=== PATIENT | female | born 1960 | race Caucasian/White ===

== ENCOUNTER 2017-05-18 08:03 | Emergency (ER) | payer SELFPAY ==
[~2017-05-18] VITALS: Ht 160 cm; Wt 75.0 kg
[2017-05-18 08:04] VITALS: BP 179/102; PULSE 83; RESP 16; TEMP 98.2; O2SAT 96
--- NOTE | 2017-05-18 09:39 | PD ---
HPI Chief Complaint: Edema Time Seen by Provider: 09:34 Travel History International Travel<30 days: No Contact w/Intl Traveler<30days: No Traveled to known affect area: No History of Present Illness HPI 56-year-old female patient with history of CHF, not on any diuretics, apparently has been moving around [place] quite a lot, does not have a primary care doctor, is here because she states that her legs have been swollen for 3 days and she has been walking around on her feet recently, and states that she is having some shortness of breath and dyspnea on exertion. She denies any chest pains, fevers, or other symptoms. Modifying Factors: None Associated Signs & Symptoms: Dyspnea on exertion, bilateral leg swelling Risk Factors: CHF history PFSH Past Medical History Cardiovascular Problems: Yes (CHF) ?: Not Social History Tobacco Use: Yes Allergies-Medications (Allergen,Severity, Reaction): Coded Allergies: ibuprofen (Verified Allergy, Intermediate, Rash, 05/18/17) Reported Meds & Prescriptions Reported Meds & Active Scripts Active Reported Flexeril (Cyclobenzaprine HCl) 10 Mg Tab 10 Mg PO BID Review of Systems Except as stated in HPI: all other systems reviewed are Neg Physical Exam Narrative GENERAL: Well-developed middle age female patient currently in mild distress. Awake and oriented 3. SKIN: Focused skin assessment warm/dry. HEAD: Atraumatic. Normocephalic. EYES: Pupils equal and round. No scleral icterus. No injection or drainage. ENT: No nasal bleeding or discharge. Mucous membranes pink and moist. NECK: Trachea midline. No JVD. Supple. CARDIOVASCULAR: Regular rate and rhythm. No murmur appreciated. RESPIRATORY: No accessory muscle use. Clear to auscultation. Breath sounds equal bilaterally. GASTROINTESTINAL: Abdomen soft, non-tender, nondistended. Hepatic and splenic margins not palpable. MUSCULOSKELETAL: No obvious deformities. No clubbing. No cyanosis. Bilateral pitting edema of the legs. NEUROLOGICAL: Awake and alert. No obvious cranial nerve deficits. Motor grossly within normal limits. Normal speech. PSYCHIATRIC: Appropriate mood and affect; insight and judgment normal. Data Data Last Documented VS Vital Signs Date Time Temp Pulse Resp B/P (MAP) Pulse Ox O2 Delivery O2 Flow Rate FiO2 05/18/17 08:04 98.2 83 16 179/102 (127) 96 Orders Orders Complete Blood Count With Diff (05/18/17 09:35) Comprehensive Metabolic Panel (05/18/17 09:35) B-Type Natriuretic Peptide (05/18/17 09:35) Troponin I (05/18/17 09:35) Iv Access Insert/Monitor (05/18/17 09:35) Ecg Monitoring (05/18/17 09:35) Oximetry (05/18/17 09:35) Oxygen Administration (05/18/17 09:35) Chest, Single Ap (05/18/17 09:35) Us Leg Venous Doppler Bilat (05/18/17 09:35) Furosemide Inj (Lasix Inj) (05/18/17 11:15) Labs Laboratory Tests Test 05/18/17 09:55 White Blood Count 11.3 TH/MM3 Red Blood Count 3.94 MIL/MM3 Hemoglobin 12.5 GM/DL Hematocrit 38.0 % Mean Corpuscular Volume 96.3 FL Mean Corpuscular Hemoglobin 31.7 PG Mean Corpuscular Hemoglobin Concent 33.0 % Red Cell Distribution Width 14.0 % Platelet Count 349 TH/MM3 Mean Platelet Volume 8.8 FL Neutrophils (%) (Auto) 55.1 % Lymphocytes (%) (Auto) 35.5 % Monocytes (%) (Auto) 6.7 % Eosinophils (%) (Auto) 1.8 % Basophils (%) (Auto) 0.9 % Neutrophils # (Auto) 6.2 TH/MM3 Lymphocytes # (Auto) 4.0 TH/MM3 Monocytes # (Auto) 0.8 TH/MM3 Eosinophils # (Auto) 0.2 TH/MM3 Basophils # (Auto) 0.1 TH/MM3 CBC Comment DIFF FINAL Differential Comment Blood Urea Nitrogen 7 MG/DL Creatinine 0.90 MG/DL Random Glucose 101 MG/DL Total Protein 7.9 GM/DL Albumin 3.7 GM/DL Calcium Level 9.0 MG/DL Alkaline Phosphatase 49 U/L Aspartate Amino Transf (AST/SGOT) 30 U/L Alanine Aminotransferase (ALT/SGPT) 28 U/L Total Bilirubin 0.6 MG/DL Sodium Level 139 MEQ/L Potassium Level 3.9 MEQ/L Chloride Level 106 MEQ/L Carbon Dioxide Level 25.6 MEQ/L Anion Gap 7 MEQ/L Estimat Glomerular Filtration Rate 65 ML/MIN Troponin I LESS THAN 0.02 NG/ML B-Type Natriuretic Peptide 15 PG/ML MDM Medical Decision Making Medical Screen Exam Complete: Yes Emergency Medical Condition: Yes Medical Record Reviewed: Yes Interpretation(s) Laboratory Tests Test 05/18/17 09:55 White Blood Count 11.3 TH/MM3 (4.0-11.0) Red Blood Count 3.94 MIL/MM3 (4.00-5.30) Estimat Glomerular Filtration Rate 65 ML/MIN (>89) Troponin I LESS THAN 0.02 NG/ML Last 24 hours Impressions Lower Extremity Ultrasound 05/18/17 0935 Signed Impressions: Service Date/Time: Thursday, May 18, 2017 09:52 - CONCLUSION: Normal examination. Marcus Chung MD Differential Diagnosis Dyspnea on exertion, bilateral leg swelling: CHF versus DVT versus dependent leg edema Narrative Course Chest x-ray was unremarkable for any signs of acute pulmonary processes. Ultrasound did not show DVT. Her BNP is fairly normal. I suspect that the patient has some underlying chronic leg edema, possible CHF without overt acute exacerbation. My plan would be to give her diuretics. She may need to put her legs up when sitting and laying down which may help with the edema as well. My plan would be to release her at this point and have her follow-up with primary care doctor. Return for any worsening in symptoms as needed. The plan has been discussed with her and she states understanding. Diagnosis Primary Impression: Leg swelling Referrals: [facility] Med/Other Pt SpecificInfo: Prescription(s) given Scripts Furosemide (Lasix) 20 Mg Tab 20 MG PO DAILY, #7 TAB 0 Refills Prov: Marc Canchola MD 05/18/17 Disposition: 01 DISCHARGE HOME Condition: Stable Marc Canchola MD May 18, 2017 09:39
[2017-05-18] MEDS ORDERED: CYCL10TA PO (09:42)
[2017-05-18 10:14] LABS: AUTOMATED NEUTROPHIL # 6.2 TH/MM3 (1.8-7.7); BASOPHIL # 0.1 TH/MM3 (0-0.2); BASOPHIL % 0.9 % (0.0-2.0); EOSINOPHIL # 0.2 TH/MM3 (0-0.4); EOSINOPHIL % 1.8 % (0.0-4.0); HEMOGLOBIN 12.5 GM/DL (11.6-15.3); LYMPH % 35.5 % (9.0-44.0); MEAN CELL VOLUME 96.3 FL (80.0-100.0); MEAN CORPUSCULAR HEMOGLOBIN 31.7 PG (27.0-34.0); MEAN PLATELET VOLUME 8.8 FL (7.0-11.0); MONO % 6.7 % (0.0-8.0); MONOCYTE # 0.8 TH/MM3 (0-0.9); NEUT % 55.1 % (16.0-70.0); PLATELET COUNT 349 TH/MM3 (150-450); RED BLOOD COUNT 3.94 MIL/MM3 (4.00-5.30); WHITE BLOOD COUNT 11.3 TH/MM3 (4.0-11.0)
[2017-05-18 10:43] LABS: ALBUMIN 3.7 GM/DL (3.4-5.0); AST (GOT) 30 U/L (15-37); BICARBONATE 25.6 MEQ/L (21.0-32.0); BLOOD UREA NITROGEN 7 MG/DL (7-18); CHLORIDE 106 MEQ/L (98-107); GLOMERULAR FILTRATION RATE 65 ML/MIN (>89); GLUCOSE,RANDOM 101 MG/DL (74-106); SODIUM (NA) 139 MEQ/L (136-145)
[2017-05-18 10:44] LABS: ALKALINE PHOSPHATASE 49 U/L (45-117); ALT (GPT) 28 U/L (10-53); TOTAL BILIRUBIN ADULT 0.6 MG/DL (0.2-1.0); TOTAL PROTEIN 7.9 GM/DL (6.4-8.2); TROPONIN I LESS THAN 0.02 NG/ML (0.02-0.05)
--- NOTE | 2017-05-18 11:01 | RADRPT ---
EXAM DATE/TIME: 05/18/2017 09:52 [facility] COMPARISON: No previous studies available for comparison. INDICATIONS : Leg swelling for three days with shortness of breath. MEDICAL HISTORY : Congestive heart failure. Dyspnea. Leg swelling. SURGICAL HISTORY : None. ENCOUNTER: Initial ACUITY: 3 days PAIN SCORE: 3/10 LOCATION: Bilateral legs. TECHNIQUE: Venous ultrasound of the left and right leg was performed from the inguinal ligament to the proximal calf. Real-time, color Doppler and spectral tracing, compression and augmentation techniques were us ed. FINDINGS: RIGHT LEG: There is normal compressibility of the deep venous system from the inguinal region to the proximal ca lf. No echogenic clot is seen in the lumen of the common femoral, femoral, popliteal, and posterior tibial veins. There is a normal response of the venous system to proximal and distal augmentation an d respiration. LEFT LEG: There is normal compressibility of the deep venous system from the inguinal region to the proximal ca lf. No echogenic clot is seen in the lumen of the common femoral, femoral, popliteal, and posterior tibial veins. There is a normal response of the venous system to proximal and distal augmentation an d respiration. CONCLUSION: Normal examination. Marcus Chung MD on May 18, 2017 at 10:58 Board Certified Radiologist. This report was verified electronically.
--- NOTE | 2017-05-18 11:12 | RADRPT ---
EXAM DATE/TIME: 05/18/2017 10:36 [facility] COMPARISON: No previous studies available for comparison. INDICATIONS : Short of breath. MEDICAL HISTORY : Congestive heart failure. Emphysema. SURGICAL HISTORY : None. ENCOUNTER: Initial ACUITY: 1 day PAIN SCORE: 4/10 LOCATION: Bilateral chest FINDINGS: A single view of the chest demonstrates the lungs to be symmetrically aerated without evidence of mas s, infiltrate or effusion. The cardiomediastinal contours are unremarkable. Osseous structures are intact. CONCLUSION: Normal examination. Marcus Chung MD on May 18, 2017 at 11:09 Board Certified Radiologist. This report was verified electronically.
[2017-05-18] MEDS ORDERED: FUROSEMIDE 40 MG/4 ML VIAL IV PUSH ONE (11:15)
[2017-05-18] MEDS ORDERED: FURO1TAB62 PO (11:21)
== END 2017-05-18 12:15 | disposition home or self-care (01) ==
LOC: NEPC 08:03
DX: M79.89 Other specified soft tissue disorders (principal); R06.02 Shortness of breath; R06.00 Dyspnea, unspecified; I50.9 Heart failure, unspecified; Z72.0 Tobacco use; Z88.6 Allergy status to analgesic agent; Z79.899 Other long term (current) drug therapy
CPT/HCPCS: 71045; 80053; 83880; 84484; 85025; 93970; 96374; 99285; J1940

== ENCOUNTER 2017-07-04 11:18 | Emergency (ER) | payer SELFPAY ==
[~2017-07-04] VITALS: Ht 160 cm; Wt 100.0 kg
[~2017-07-04 11:18] MED LIST: CYCL10TA PO; FURO1TAB62 PO
[2017-07-04 11:23] VITALS: BP 146/72; PULSE 80; RESP 16; TEMP 97.9; O2SAT 96
[2017-07-04] MEDS ORDERED: AMOX875T PO (12:36)
--- NOTE | 2017-07-04 12:37 | PD ---
HPI Chief Complaint: Oral / Dental Pain or Problem Time Seen by Provider: 12:04 Travel History International Travel<30 days: No Contact w/Intl Traveler<30days: No Traveled to known affect area: No History of Present Illness HPI 56-year-old female that presents to the ED for evaluation of right lower dental pain. Patient has had this pain for about a month on and off. She knows that she has bad dentition. Per patient his been worse for the past 2 weeks and is not getting better. She comes here in hopes that she needed antibiotic to get a better. Denies any other medical issues. Has not seen a dentist. Has no local dentist. Has an allergy to ibuprofen. States that the pain is currently 6 out of 10. Pain mostly to the right lower tooth. PFSH Past Medical History Cardiovascular Problems: Yes (CHF) Musculoskeletal: Yes (NECK PAIN) Tetanus Vaccination: > 5 Years Influenza Vaccination: No ?: Not Menopausal: Yes Past Surgical History Abdominal Surgery: Yes (SPLENECTOMY) Tonsillectomy: Yes Social History Alcohol Use: Yes (OCC) Tobacco Use: No Substance Use: No Allergies-Medications (Allergen,Severity, Reaction): Coded Allergies: ibuprofen (Verified Allergy, Intermediate, Rash, 07/04/17) Reported Meds & Prescriptions Reported Meds & Active Scripts Active Amoxicillin 875 Mg Tab 875 Mg PO BID 14 Days Reported Flexeril (Cyclobenzaprine HCl) 10 Mg Tab 10 Mg PO BID Review of Systems Except as stated in HPI: all other systems reviewed are Neg Physical Exam Narrative GENERAL: SKIN: Warm and dry. HEAD: Atraumatic. Normocephalic. EYES: Pupils equal and round. No scleral icterus. No injection or drainage. ENT: No nasal bleeding or discharge. Mucous membranes pink and moist. Tongue is midline. No uvula deviation. Dental: Patient has bad dentition throughout with a lot of the molars missing ordered almost eroded. Patient does have soft tissue swelling only, on the right lower jaw but no obvious sign of purulence. Patient has appreciable pain with touch in the right most incisor. tooth 27 and 26. NECK: Trachea midline. No JVD. CARDIOVASCULAR: Regular rate and rhythm. RESPIRATORY: No accessory muscle use. Clear to auscultation. Breath sounds equal bilaterally. GASTROINTESTINAL: Abdomen soft, non-tender, nondistended. Hepatic and splenic margins not palpable. MUSCULOSKELETAL: Extremities without clubbing, cyanosis, or edema. No obvious deformities. NEUROLOGICAL: Awake and alert. No obvious cranial nerve deficits. Motor grossly within normal limits. Five out of 5 muscle strength in the arms and legs. Normal speech. PSYCHIATRIC: Appropriate mood and affect; insight and judgment normal. Data Data Last Documented VS Vital Signs Date Time Temp Pulse Resp B/P (MAP) Pulse Ox O2 Delivery O2 Flow Rate FiO2 07/04/17 11:23 97.9 80 16 146/72 (96) 96 Orders Orders Ed Discharge Order (07/04/17 12:36) MDM Medical Decision Making Medical Screen Exam Complete: Yes Emergency Medical Condition: Yes Medical Record Reviewed: Yes Differential Diagnosis Dental infection versus dentalgia versus abscess Narrative Course 56-year-old female that presents to the ED for evaluation of dental infection. Patient was properly examined and was found to have signs and symptoms consistent appears to be tooth infection. Patient will be given a prescription for amoxicillin. Told to follow with PCP. Tylenol for pain. Ice or warm compresses. See ED worsening symptoms. Given dental referral. Diagnosis Primary Impression: Tooth infection Patient Instructions: General Instructions Additional Instructions: Take medication as prescribed. Follow with dentist. Tylenol for pain. Ice or warm compresses. Follow with PCP. See ED worsening symptoms. Med/Other Pt SpecificInfo: Prescription(s) given Scripts Amoxicillin (Amoxicillin) 875 Mg Tab 875 MG PO BID for Infection for 14 Days, #28 TAB 0 Refills Prov: Erik Coleman MD 07/04/17 Disposition: 01 DISCHARGE HOME Condition: Stable Robby Peñaloza Jul 04, 2017 12:37
== END 2017-07-04 12:43 | disposition home or self-care (01) ==
LOC: PHEFT 11:18
DX: K04.7 Periapical abscess without sinus (principal); I50.9 Heart failure, unspecified; Z88.6 Allergy status to analgesic agent
CPT/HCPCS: 99283

== ENCOUNTER 2017-08-03 11:29 | Emergency (ER) | payer SELFPAY ==
[~2017-08-03] VITALS: Ht 160 cm; Wt 82.0 kg
[~2017-08-03 11:29] MED LIST changes: +AMOX875T PO; -FURO1TAB62 PO
[2017-08-03 11:35] VITALS: BP 173/81; PULSE 96; RESP 16; TEMP 98.9; O2SAT 99
--- NOTE | 2017-08-03 11:49 | PD ---
HPI Chief Complaint: Edema Time Seen by Provider: 11:38 Travel History International Travel<30 days: No Contact w/Intl Traveler<30days: No Traveled to known affect area: No History of Present Illness HPI 56-year-old female presents for evaluation of right knee injury. She reports a 1.5 weeks ago she twisted her right knee. Since then she has had pain to the medial lateral right knee which is aching and worse with walking. She reports that she is chronic lower extremity edema which is usually worse when she is walking and alleviated when she lifts her legs. It has been somewhat worse over the past few days as well. Denies chest pain, shortness of breath, nausea , vomiting, numbness or tingling or weakness. She is under the impression that she may have been diagnosed with CHF when she lived in [place] however she is very uncertain about this diagnosis. In the past she was prescribed Lasix. The patient was here in May 2017 for evaluation of lower extremity edema. She had negative bilateral lower extremity ultrasounds at that time. She had a normal BNP and her chest x-ray had no evidence of cardiomegaly. No other complaints. PFSH Past Medical History Cardiovascular Problems: Yes (CHF) Musculoskeletal: Yes (NECK PAIN) Menopausal: Yes Past Surgical History Abdominal Surgery: Yes (SPLENECTOMY) Tonsillectomy: Yes Social History Alcohol Use: Yes (OCC) Tobacco Use: No Substance Use: No Allergies-Medications (Allergen,Severity, Reaction): Coded Allergies: ibuprofen (Verified Allergy, Intermediate, Rash, 08/03/17) Reported Meds & Prescriptions Reported Meds & Active Scripts Active Tramadol (Tramadol HCl) 50 Mg Tab 50 Mg PO Q6H PRN Review of Systems Except as stated in HPI: all other systems reviewed are Neg Physical Exam Narrative GENERAL: Well-developed well-nourished female no acute distress SKIN: Warm and dry. HEAD: Atraumatic. Normocephalic. EYES: Pupils equal and round. No scleral icterus. No injection or drainage. ENT: No nasal bleeding or discharge. Mucous membranes pink and moist. NECK: Trachea midline. No JVD. CARDIOVASCULAR: Regular rate and rhythm. No murmur appreciated. RESPIRATORY: No accessory muscle use. Clear to auscultation. Breath sounds equal bilaterally. GASTROINTESTINAL: Abdomen soft, non-tender, nondistended. Hepatic and splenic margins not palpable. MUSCULOSKELETAL: No obvious deformities. There is tenderness to palpation to the medial lateral right knee joint. The patient is unable to flex the right knee past 90 secondary to pain. Stress examination is deferred. There is bilateral lower extremity nonpitting edema. 2+ dorsalis pedis pulse bilaterally. NEUROLOGICAL: Awake and alert. No obvious cranial nerve deficits. Motor grossly within normal limits. Normal speech. Data Data Last Documented VS Vital Signs Date Time Temp Pulse Resp B/P (MAP) Pulse Ox O2 Delivery O2 Flow Rate FiO2 08/03/17 13:31 77 16 178/79 (112) 99 Room Air 08/03/17 11:35 98.9 Orders Orders Knee, Complete (4vws) (08/03/17 ) B-Type Natriuretic Peptide (08/03/17 11:47) Comprehensive Metabolic Panel (08/03/17 11:47) Labs Laboratory Tests Test 08/03/17 12:45 Blood Urea Nitrogen 9 MG/DL Creatinine 0.82 MG/DL Random Glucose 88 MG/DL Total Protein 7.2 GM/DL Albumin 3.3 GM/DL Calcium Level 8.8 MG/DL Alkaline Phosphatase 44 U/L Aspartate Amino Transf (AST/SGOT) 31 U/L Alanine Aminotransferase (ALT/SGPT) 32 U/L Total Bilirubin 0.5 MG/DL Sodium Level 140 MEQ/L Potassium Level 3.7 MEQ/L Chloride Level 104 MEQ/L Carbon Dioxide Level 27.0 MEQ/L Anion Gap 9 MEQ/L Estimat Glomerular Filtration Rate 72 ML/MIN B-Type Natriuretic Peptide 28 PG/ML MDM Medical Decision Making Medical Screen Exam Complete: Yes Emergency Medical Condition: Yes Medical Record Reviewed: Yes Differential Diagnosis Right knee sprain, strain, proximal fibular fracture, tibial plateau fracture, ligamentous disruption, meniscal disruption Narrative Course 56-year-old female with right knee pain after twisting her right knee 1.5 weeks ago. X-ray imaging will be obtained. In addition she has chronic nonpitting lower extremity edema which is worse over the past few days. Symptoms are worse when walking and alleviated when she lifts her legs. She had a normal BNP and chest x-ray with no evidence of cardiomegaly in May 2017 and it is unlikely that this patient has CHF. Her edema is more consistent with dependent edema. I recommended that she establish care with a local primary care physician and obtain her records from [place] in order to see if she ever had a formal echocardiogram. X-ray reveals mild osteoarthritis with no acute findings. Lab work is unremarkable. At this point in time the plan is to discharge the patient to follow-up with primary care physician to discuss possible outpatient MRI of the right knee. Her lower extremity nonpitting edema is likely dependent edema and I have recommended compression stockings and elevation. Diagnosis Primary Impression: Right knee sprain Additional Impression: Dependent edema Additional Instructions: Ice the right knee several times a day 15 minutes at a time. Rest. Compression stockings. Elevation of the lower extremities. Follow-up with primary care physician to discuss outpatient MRI of the right knee if symptoms persist. Med/Other Pt SpecificInfo: Prescription(s) given Scripts Tramadol (Tramadol) 50 Mg Tab 50 MG PO Q6H Y for PAIN, #10 TAB 0 Refills Prov: Fernando Sandoval MD 08/03/17 Disposition: 01 DISCHARGE HOME Condition: Stable Ismael Lopez Aug 03, 2017 11:49
--- NOTE | 2017-08-03 12:45 | RADRPT ---
EXAM DATE/TIME: 08/03/2017 12:25 [facility] COMPARISON: No previous studies available for comparison. INDICATIONS : Right knee pain. Twisting injury. MEDICAL HISTORY : Congestive heart failure. Emphysema. SURGICAL HISTORY : None. ENCOUNTER: Initial ACUITY: 1 week PAIN SCORE: 7/10 LOCATION: Right lateral knee FINDINGS: Four view examination of the right knee demonstrates no evidence of fracture or dislocation. Bony mi neralization is normal. Mild osteoarthritis present. The suprapatellar soft tissues have a normal con figuration. CONCLUSION: 1. Mild osteoarthritis of the right knee. No acute bony abnormality. Sony Mckeon MD on August 03, 2017 at 12:41 Board Certified Radiologist. This report was verified electronically.
[2017-08-03 13:22] LABS: ALBUMIN 3.3 GM/DL (3.4-5.0); AST (GOT) 31 U/L (15-37); BLOOD UREA NITROGEN 9 MG/DL (7-18); CALCIUM 8.8 MG/DL (8.5-10.1); CHLORIDE 104 MEQ/L (98-107); CREATININE 0.82 MG/DL (0.50-1.00); GLOMERULAR FILTRATION RATE 72 ML/MIN (>89); GLUCOSE,RANDOM 88 MG/DL (74-106); SODIUM (NA) 140 MEQ/L (136-145)
[2017-08-03 13:23] LABS: ALT (GPT) 32 U/L (10-53)
[2017-08-03 13:25] LABS: ALKALINE PHOSPHATASE 44 U/L (45-117); TOTAL BILIRUBIN ADULT 0.5 MG/DL (0.2-1.0); TOTAL PROTEIN 7.2 GM/DL (6.4-8.2)
[2017-08-03 13:31] VITALS: BP 178/79; PULSE 77; RESP 16; O2SAT 99
[2017-08-03] MEDS ORDERED: TRAM50TA PO (14:18)
--- NOTE | 2017-08-03 14:26 | PD ---
Data Data Last Documented VS Vital Signs Date Time Temp Pulse Resp B/P (MAP) Pulse Ox O2 Delivery O2 Flow Rate FiO2 08/03/17 13:31 77 16 178/79 (112) 99 Room Air 08/03/17 11:35 98.9 Orders Orders Knee, Complete (4vws) (08/03/17 ) B-Type Natriuretic Peptide (08/03/17 11:47) Comprehensive Metabolic Panel (08/03/17 11:47) Ed Discharge Order (08/03/17 14:20) Labs Laboratory Tests Test 08/03/17 12:45 Blood Urea Nitrogen 9 MG/DL Creatinine 0.82 MG/DL Random Glucose 88 MG/DL Total Protein 7.2 GM/DL Albumin 3.3 GM/DL Calcium Level 8.8 MG/DL Alkaline Phosphatase 44 U/L Aspartate Amino Transf (AST/SGOT) 31 U/L Alanine Aminotransferase (ALT/SGPT) 32 U/L Total Bilirubin 0.5 MG/DL Sodium Level 140 MEQ/L Potassium Level 3.7 MEQ/L Chloride Level 104 MEQ/L Carbon Dioxide Level 27.0 MEQ/L Anion Gap 9 MEQ/L Estimat Glomerular Filtration Rate 72 ML/MIN B-Type Natriuretic Peptide 28 PG/ML MDM Supervised Visit with JADA: Yes Narrative Course I, Dr. Sandoval, have reviewed the advance practice practitioner's documentation and am in agreement, met with the patient face to face, made the diagnosis, and the medical decision making was done by me. *My assessment and Findings: Patient has a host of a complaints and some soft tissue injury of her knee. X-rays negative for bony injury. Patient wants an MRI but I have directed her to discuss this with her outpatient physician. I wrote her a few days of tramadol. She is warned about potential sedation and constipation. Stable for outpatient follow-up Diagnosis Primary Impression: Right knee sprain Additional Impression: Dependent edema Additional Instruction: Ice the right knee several times a day 15 minutes at a time. Rest. Compression stockings. Elevation of the lower extremities. Follow-up with primary care physician to discuss outpatient MRI of the right knee if symptoms persist. Scripts Tramadol (Tramadol) 50 Mg Tab 50 MG PO Q6H Y for PAIN, #10 TAB 0 Refills Prov: Fernando Sandoval MD 08/03/17 Disposition: 01 DISCHARGE HOME Condition: Stable Fernando Sandoval MD Aug 03, 2017 14:26
== END 2017-08-03 14:53 | disposition home or self-care (01) ==
LOC: NEPC 11:29
DX: S83.91XA Sprain of unspecified site of right knee, initial encounter (principal); I50.9 Heart failure, unspecified; X50.1XXA Overexertion from prolonged static or awkward postures, initial encounter
CPT/HCPCS: 73564; 80053; 83880; 99284

== ENCOUNTER 2017-09-07 08:55 | Emergency (ER) | payer SELFPAY ==
[~2017-09-07] VITALS: Ht 160 cm; Wt 75.0 kg
[~2017-09-07 08:55] MED LIST changes: -AMOX875T PO; -CYCL10TA PO; +TRAM50TA PO
[2017-09-07 09:01] VITALS: BP 117/64; PULSE 77; RESP 16; TEMP 97.7; O2SAT 100
--- NOTE | 2017-09-07 09:14 | PD ---
HPI Chief Complaint: Pain: Acute or Chronic Time Seen by Provider: 09:07 Travel History International Travel<30 days: No Contact w/Intl Traveler<30days: No Traveled to known affect area: No History of Present Illness HPI 56-year-old female arrives via EMS with complaint of continued right knee pain 1 month. She was seen here a month ago for the same complaint. She denies new or recent injury. She has been using a knee brace for support. Denies paresthesias, loss of sensation, decreased range of motion, decreased strength to the affected extremity. Denies fevers, vomiting. Has been ambulatory on the affected extremity. Says she has been limping on the extremity. Says she was given tramadol when she was seen here a month ago, for her pain, and is requesting another prescription for tramadol. She has not followed up outpatient for knee pain. Pain is to the lateral aspect of the right knee. Symptoms are mild in severity. Worse with palpation, ambulation. Better at rest. She has no primary care provider. Allergies to ibuprofen. History of CHF. Has no other medical complaints. No other modifying factors or associated signs and symptoms. PFSH Past Medical History Cardiovascular Problems: Yes (CHF) Congestive Heart Failure: Yes Musculoskeletal: Yes (NECK PAIN) Tetanus Vaccination: Unknown Influenza Vaccination: No ?: Not Menopausal: Yes Past Surgical History Abdominal Surgery: Yes (SPLENECTOMY) Tonsillectomy: Yes Social History Alcohol Use: Yes (OCC) Tobacco Use: No Substance Use: No Allergies-Medications (Allergen,Severity, Reaction): Coded Allergies: ibuprofen (Verified Allergy, Intermediate, Rash, 09/07/17) Reported Meds & Prescriptions Reported Meds & Active Scripts Active No Active Prescriptions or Reported Medications Review of Systems Except as stated in HPI: all other systems reviewed are Neg Physical Exam Narrative GENERAL: Well-nourished, well-developed patient, in no acute distress ; afebrile, nontoxic-appearing SKIN: Warm and dry. HEAD: Atraumatic. Normocephalic. EYES: Pupils equal and round. No scleral icterus. No injection or drainage. ENT: Mucosa pink and moist. Airway patent. NECK: Trachea midline. CARDIOVASCULAR: Regular rate. RESPIRATORY: No accessory muscle use. GASTROINTESTINAL: Obese. MUSCULOSKELETAL: Right knee nonedematous, nonerythematous, and without ecchymosis; full range of motion and flexion to 90; point tenderness to the lateral aspect; joint stable with negative drawer test; no obvious deformity. Right Lower extremity is supple and non-tense with 2+ pedal pulse and sensory intact and without erythema or edema. Ambulatory in room with a limp to the right lower extremity. NEUROLOGICAL: Awake and alert. Oriented 3. No obvious cranial nerve deficits. Motor grossly within normal limits. Normal speech. PSYCHIATRIC: Appropriate mood and affect; insight and judgment normal. Data Data Last Documented VS Vital Signs Date Time Temp Pulse Resp B/P (MAP) Pulse Ox O2 Delivery O2 Flow Rate FiO2 09/07/17 09:01 97.7 77 16 117/64 (81) 100 MDM Medical Decision Making Medical Screen Exam Complete: Yes Emergency Medical Condition: No Medical Record Reviewed: Yes Differential Diagnosis Osteoarthritis of right knee, knee pain Narrative Course 56-year-old female presents via EMS with complaint of continued right knee pain. She was seen here on August 03, 2017 and R knee x-ray concludes: Mild osteoarthritis of the right knee. No acute bony abnormality. She denies new or recent injury. Patient provided a copy of the x-ray report. Instructed patient to follow-up with orthopedics. Vital signs are stable and the patient is stable for outpatient follow-up and treatment. The patient has no urgent or emergent medical complaints. There is no emergent or urgent medical need at this time. I instructed the patient to follow up with their primary care provider. A medical screening exam was performed: At the time of evaluation the presenting medical condition was determined not to be of an emergent nature. The patient was given the option of receiving additional care, but declined. Patient was given options for additional community resources from which to obtain care. The Patient Has Been advised to seek medical attention for their presenting complaint. The patient has been advised to return to the ER at any time if an emergent condition develops. Diagnosis Primary Impression: Encounter for medical screening examination Scripts No Active Prescriptions or Reported Meds Condition: Stable Cecilia Tong September 07, 2017 09:13
== END 2017-09-07 09:43 | disposition left against medical advice (07) ==
LOC: NEPD 08:55
DX: M25.561 Pain in right knee (principal)
CPT/HCPCS: 99281; 99282

== ENCOUNTER 2017-09-22 11:13 | Emergency (ER) | payer SELFPAY ==
[~2017-09-22] VITALS: Ht 160 cm; Wt 75.0 kg
[2017-09-22 11:34] VITALS: BP 153/94; PULSE 89; RESP 20; TEMP 98.4; O2SAT 98
--- NOTE | 2017-09-22 11:55 | PD ---
HPI Chief Complaint: Pain: Acute or Chronic Time Seen by Provider: 11:45 Travel History International Travel<30 days: No Contact w/Intl Traveler<30days: No Traveled to known affect area: No History of Present Illness HPI 56-year-old female presents to the emergency department for evaluation of continued right knee pain. Patient was seen on August 03, 2017 and an x-ray was completed of her right knee. X-ray showed mild osteoarthritis, no acute bony abnormality. Patient then returned on Sep 07 2017 for the same issue. She is requesting prescription for tramadol. Patient returns today for the same continued right knee pain. She states she does not want an x-ray, but once stronger pain medication that she can get [id number]. She has not followed up outpatient. Patient is requesting another prescription for tramadol. She also reports dental pain for 2 months and has not followed up with a dentist. No fevers or chills. No chest pain or shortness of breath. No abdominal pain. Patient is walking around in the exam room upon my exam. Mild severity. History Past Medical Histgory Menopausal: Yes Social History Alcohol Use: Yes (OCC) Tobacco Use: No Allergies-Medications (Allergen,Severity, Reaction): Coded Allergies: ibuprofen (Verified Allergy, Intermediate, Rash, 09/07/17) Reported Meds & Prescriptions Reported Meds & Active Scripts Active No Active Prescriptions or Reported Medications Review of Systems Except as stated in HPI: all other systems reviewed are Neg Physical Exam Narrative GENERAL: Well-nourished, well-developed female patient, ambulatory with a steady gait. Afebrile. SKIN: Focused skin assessment warm/dry. No lacerations or abrasions. No erythema. HEAD: Normocephalic. Atraumatic. ENT: Mucosa pink and moist. No erythema or exudates. No uvular edema. No uvular , palatal, or tonsillar deviation. Airway patent. Nasal turbinates appear normal without nasal blood, purulent drainage or septal hematoma. Bilateral tympanic membranes clear without erythema or perforation. Patient has poor dentalgia, but no evidence of dental abscess. Note reproducible tenderness over the gingiva. EYES: No scleral icterus. No injection or drainage. NECK: Supple, trachea midline. No JVD or lymphadenopathy. CARDIOVASCULAR: Regular rate and rhythm without murmurs, gallops, or rubs. Bilateral pedal pulses are 2+. RESPIRATORY: Breath sounds equal bilaterally. No accessory muscle use. Lung sounds are clear to auscultation peer GASTROINTESTINAL: Abdomen soft, non-tender, nondistended. MUSCULOSKELETAL: No cyanosis. No bony point tenderness over right knee. She is ambulatory with a steady gait. BACK: Nontender without obvious deformity. No CVA tenderness. Data Data Last Documented VS Vital Signs Date Time Temp Pulse Resp B/P (MAP) Pulse Ox O2 Delivery O2 Flow Rate FiO2 09/22/17 11:34 98.4 89 20 153/94 (113) 98 MDM Medical Screen Exam Complete: Yes Emergency Medical Condition: No Differential Diagnosis Chronic right knee pain Narrative Course 56-year-old female presents to the emergency department for continued right knee pain since she was seen on August 03, 2017. She is requesting a prescription for tramadol. I discussed with her that this is a controlled substance and that we would not refill this for her knee pain that has been ongoing for a significant amount of time. She does not want an x-ray completed and has already had one that showed no acute bony abnormality. Patient is ambulatory with a steady gait. She also complains of dental pain. She has poor dentalgia, no evidence of dental infection and no reproducible tenderness to palpation. Patient is instructed to follow the primary care physician. I told her about the [facility]. No emergent conditions identified on today's exam. A medical screening exam was performed: At the time of evaluation the presenting medical condition was determined not to be of an emergent nature. The patient was given the option of receiving additional care, but declined. Patient was given options for additional community resources from which to obtain care. The Patient Has Been advised to seek medical attention for their presenting complaint. The patient has been advised to return to the ER at any time if an emergent condition develops. Primary Impression: Encounter for medical screening examination Scripts No Active Prescriptions or Reported Meds Condition: Stable Zunilda Cueva September 22, 2017 11:55
== END 2017-09-22 11:55 | disposition left against medical advice (07) ==
LOC: NEPK 11:13
DX: M25.561 Pain in right knee (principal); K08.89 Other specified disorders of teeth and supporting structures; Z53.21 Procedure and treatment not carried out due to patient leaving prior to being seen by health care provider; Z88.6 Allergy status to analgesic agent
CPT/HCPCS: 99281

== ENCOUNTER 2017-10-20 13:27 | Emergency (ER) | payer SELFPAY ==
[~2017-10-20] VITALS: Ht 160 cm; Wt 75.0 kg
[2017-10-20 13:41] VITALS: BP 152/78; PULSE 76; RESP 18; TEMP 98.2; O2SAT 96
--- NOTE | 2017-10-20 15:12 | PD ---
HPI Chief Complaint: Musculoskeletal Complaint Time Seen by Provider: 15:02 Travel History International Travel<30 days: No Contact w/Intl Traveler<30days: No Traveled to known affect area: No History of Present Illness HPI 57-year-old female presents to the emergency department with complaint of left posterior knee pain since Tuesday. Denies traumatic injury. Says that she was "moving around a lot" and then when she stood still her knee started hurting. Denies paresthesias, loss of sensation, decreased range of motion, decreased strength to the affected extremity. Has been ambulatory on the affected extremity. Reports limping. Rates pain 10/10. Worse with flexion and ambulation. Has not taken any medications or try any treatments to alleviate her symptoms. Better at rest. No primary care provider. Allergies to ibuprofen. Denies significant past medical history. Has no other medical complaints. No other modifying factors or associated signs and symptoms. History Past Medical Histgory Menopausal: Yes Social History Alcohol Use: Yes (OCC) Tobacco Use: No Allergies-Medications (Allergen,Severity, Reaction): Coded Allergies: ibuprofen (Verified Allergy, Intermediate, Rash, 09/07/17) Reported Meds & Prescriptions Reported Meds & Active Scripts Active No Active Prescriptions or Reported Medications Review of Systems Except as stated in HPI: all other systems reviewed are Neg Physical Exam Narrative GENERAL: Well-nourished, well-developed female patient, in no acute distress; afebrile, nontoxic-appearing SKIN: Warm and dry. HEAD: Atraumatic. Normocephalic. EYES: Pupils equal and round. No scleral icterus. No injection or drainage. ENT: Mucosa pink and moist. Airway patent. NECK: Trachea midline. CARDIOVASCULAR: Regular rate. RESPIRATORY: No accessory muscle use. GASTROINTESTINAL: Rounded. MUSCULOSKELETAL: Left knee nonedematous, nonerythematous, and without ecchymosis ; full range of motion and flexion to 90; point tenderness to the posterior aspect; joint stable with negative drawer test; no obvious deformity. Left lower extremity is supple and non-tense with 2+ pedal pulse and sensory intact and without erythema or edema. Ambulatory in hallway. NEUROLOGICAL: Awake and alert. Oriented 3. No obvious cranial nerve deficits. Motor grossly within normal limits. Normal speech. PSYCHIATRIC: Appropriate mood and affect; insight and judgment normal. Data Data Last Documented VS Vital Signs Date Time Temp Pulse Resp B/P (MAP) Pulse Ox O2 Delivery O2 Flow Rate FiO2 10/20/17 13:41 98.2 76 18 152/78 (102) 96 MDM Medical Screen Exam Complete: Yes Emergency Medical Condition: No Differential Diagnosis Knee pain, arthritis Narrative Course 57-year-old female presents to the emergency department with complaint of left knee pain. She has been seen here multiple times with complaint of right knee pain. She had no traumatic injury. I do not suspect fracture dislocation and feel that imaging is not necessary at this time. Vital signs are stable and the patient is stable for outpatient follow-up and treatment. The patient has no urgent or emergent medical complaints. There is no emergent or urgent medical need at this time. I instructed the patient to follow up with their primary care provider. A medical screening exam was performed: At the time of evaluation the presenting medical condition was determined not to be of an emergent nature. The patient was given the option of receiving additional care, but declined. Patient was given options for additional community resources from which to obtain care. The Patient Has Been advised to seek medical attention for their presenting complaint. The patient has been advised to return to the ER at any time if an emergent condition develops. Primary Impression: Encounter for medical screening examination Scripts No Active Prescriptions or Reported Meds Condition: Stable Cecilia Tong Oct 20, 2017 15:12
== END 2017-10-20 15:20 | disposition left against medical advice (07) ==
LOC: NEPK 13:27
DX: M25.562 Pain in left knee (principal); Z88.6 Allergy status to analgesic agent
CPT/HCPCS: 99281